=== PATIENT | female | born 1975 | race Caucasian/White ===

== ENCOUNTER 2016-08-05 04:11 | Emergency (ER) | payer MEDICAID, OTHER ==
[~2016-08-05] VITALS: Ht 160 cm; Wt 61.4 kg
--- NOTE | 2016-08-05 04:10 | ED.REPORT ---
HPI-Dyspnea / Wheezing Date of Service Aug 05, 2016 ED Provider: Demetrio Hooks MD Patient is a 41 year old female with a hx of COPD, asthma, anxiety and a current every day smoker who presents to the ED via EMS due to increasing dyspnea for the past 2 hours. She awoke in the middle of the night due to SOB and reports increased phlegm. Upon arrival at the ED, she reports that the breathing treatment is helping her respiration. Pt denies chest pain. She was last seen at the ED three months ago for similar symptoms. Nursing Notes Stated Complaint: SHORT OF BREATH Nursing Notes Reviewed: Yes Allergies: Coded Allergies: No Known Allergies (Verified Allergy, Unknown, 05/05/16) Scheduled Fluticasone/Salmeterol (Advair 500-50 Diskus) 1 Each Disk.w.dev 1 PUFF IH BID Methylprednisolone (MethylprednisoLONE Dose Kyle) 4 Mg Tab.ds.pk 4 MG PO UD Follow direction on package. Nicotine 21 mg/24 hr Patch (Nicotine 21 mg/24 hr Patch) 1 Each Patch.td24 1 PATCH TOPICAL DAILY@17 Sulfamethoxazole/Trimeth 800-160 mg (Bactrim DS 800-160 mg) 1 Each Tablet 1 TABLET PO bid x 7 days Tiotropium [place] (Spiriva) 18 Mcg Cap.w.dev 18 MCG IH DAILY Scheduled PRN Albuterol HFA (Proair HFA) 8.5 Gm Hfa.aer.ad 2 PUFFS INHALATION Q4H PRN PRN For Shortness of Breath Ipratropium/Albuterol Sulfate (Iprat-Albut 0.5-3(2.5) mg/3 mL Inhalant Soln) 3 Ml Ampul.neb 3 ML NEB Q4H PRN PRN For Shortness of Breath General Time Seen by MD: 04:10 Chief Complaint Shortness of breath Hx Obtained From: Patient, EMS Arrived By: Ambulance Sudden in Onset?: Yes Onset Occurred: Just prior to arrival Symptom Duration: Since onset Severity: Current: No pain currently Recent Healthcare: No recent doctor visit, No recent hospitalization Similar Sx Previous: No Past Medical History Past Medical History Notes: Last admit was for small bowel obstruction, COPD August 2015 Past Medical History Anxiety History of small bowel obstruction COPD Asthma Reports: Depression Past Surgical History SBO repair Hemicolectomy with anastomosis Smoking History Current Every Day Smoker Social History Alcohol Use: Denies alcohol use Drug Use: THC Other Social History: Ambulatory Status Independent Review of Systems Respiratory: Reports: Dyspnea on exertion, Shortness of breath Cardiovascular: Denies: Chest pain Complete sys rev & neg: except as marked. Physical Exam Initial Vital Signs Vital Signs (First) Date Time Temp Pulse Resp B/P Pulse Ox O2 Delivery O2 Flow Rate FiO2 08/05/16 04:21 36.1 92 24 135/70 100 Simple Mask 6 Initial VS: Reviewed Head / Eyes: Atraumatic, Normocephalic, PERRL ENT: Mucous membranes moist, Conjunctiva normal, No scleral icterus Abdomen / GI: Soft, Non-tender, No guarding, No rebound, No distention Back: No CVA tenderness General/Constitutional: Awake, Alert, Well hydrated, Cooperative Distress / Hydration: Positive: Distress mild Neck: Atraumatic, Supple, No meningismus, Full range of motion, No adenopathy, No swelling, Non-tender, No midline vertebral tend Diminished Breath Sounds: Positive: Decreased bilateral Wheezing / Retractions: Positive: Wheeze insp/exp diffuse tripoding using accessory muscles for respiration Cardiovascular: Heart rate NL, Regular rhythm, Heart sounds NL, No gallop, No murmurs, No rubs Interpretation & Diagnostics Lab Results Interpretation Result Diagram: 08/05/16 0420 08/05/16 0445 Test 08/05/16 04:20 08/05/16 04:45 White Blood Count 10.1th/mm3 (3.8-10.1) Red Blood Count 4.71mil/mm3 (3.90-5.20) Hemoglobin 15.7g/dL (12.0-15.6) Hematocrit 46.8% (35.0-46.0) Mean Corpuscular Volume 99.4fL (81-100) Mean Corpuscular Hemoglobin 33.3pg (27.0-35.0) Mean Corpuscular Hemoglobin Concent 33.5% (32.0-37.0) Red Cell Distribution Width 12.0% (12.3-15.4) Platelet Count 366bil/L (150-400) Neutrophils (%) (Auto) 49.8% (40-74) Lymphocytes (%) (Auto) 36.0% (14-46) Monocytes (%) (Auto) 9.3% (4-12) Eosinophils (%) (Auto) 4.2% (0-5) Basophils (%) (Auto) 0.5% (0-3) Sodium Level 138mEq/L (134-144) Potassium Level 4.9mEq/L (3.5-5.2) Chloride Level 101mEq/L (97-108) Carbon Dioxide Level 24mmol/L (18-29) Blood Urea Nitrogen 19mg/dL (6-24) Creatinine 0.89mg/dL (0.57-1.00) Estimat Glomerular Filtration Rate 99mL/min (>59) Glucose Level 112mg/dL (60-99) Calcium Level 8.9mg/dL (8.5-10.1) Total Bilirubin 0.2mg/dL (0.0-1.2) Aspartate Amino Transf (AST/SGOT) 10U/L (0-50) Alanine Aminotransferase (ALT/SGPT) 7U/L (0-32) Alkaline Phosphatase 36U/L (25-150) Troponin T 0.010ug/L (0.0-0.011) Pro-B-Type Natriuretic Peptide 32.18pg/mL (0-130) Total Protein 6.6g/dL (6.4-8.4) Albumin 4.3g/dL (3.4-5.0) Hold [place] Top Tube Received (Received) ECG Interpretation Time: 04:31 Interpreted by: ED physician Normal ECG Interpretation: Normal sinus rhythm (79) X-Ray Chest Interpretation Chest Xray Interpretation: IMPRESSION: normal no acute findings View: Portable Interpretation / Wet Read by: Wet read ED physician Re-Eval/Medical Decision Med Decision/Clinical Course 1-year-old female with an acute exacerbation of COPD. She responded nicely to nebulizer treatments with DuoNeb followed by continuous albuterol. She was given Solu-Medrol and restarted on prednisone. A prescription was written for prednisone taper. Re-Evaluation/Progress : Time of Eval: 04:43 Patient Status: Condition improved Re-Evaluation/Progress Note: Pt rechecked. Breathing has imrpoved after treatments. Counseled Regarding: Diagnosis, Lab results, Need for follow-up, When/why to return to ED Discharge & Departure Impression: Primary Impression: COPD with acute exacerbation Disposition: Home Discharge Condition All VS Reviewed: Yes Condition: Stable Patient Instructions: Chronic Obstructive Pulmonary Disease (ED) Additional Instructions: Prednisone 20 mg, one tab by mouth 3 times a day for 2 days, one tab by mouth twice a day for 2 days, one tab daily for 2 days, then one half tab daily for 4 days, #14 prescription written. Continue your other medications. Follow-up with your primary doctor as needed for persistent symptoms. Return to the emergency room if you worsens significantly again. Referrals: [facility] (PCP) Scribe Attestation Portions of this note were transcribed by Edgar Moreno. I, Dr. Hooks personally performed the history, physical exam and medical decision-making; I reviewed and confirmed the accuracy of the information in the transcribed note. Signed by: Carson Handley, 08/05/16 0500 copies to: [facility] Demetrio Hooks MD Aug 05, 2016 04:10 EDGAR MORENO Aug 05, 2016 04:21
[~2016-08-05 04:11] MED LIST: ALBU8.5H2 INHALATION; FLUT1DIS5 IH; IPRA3AMP NEB; METH4TAB11 PO; NICO1PAT6 TOPICAL; SULF1TAB35 PO; TIOT18CA3 IH
[2016-08-05] MEDS ORDERED: Albuterol 0.5% (5mg/mL) 20 mL Inhalation Solution ONE (04:14)
[2016-08-05] MEDS ORDERED: Albuterol 2.5 mg/3 mL Inhalation Solution NEB ONE ×2 (04:15→06:15)
[2016-08-05] MEDS ORDERED: MethylprednisoLONE Sodium Succinate 62.5 mg/mL 2 mL Inj IVPUSH ONE (04:15)
[2016-08-05 04:21] VITALS: BP 135/70; PULSE 92; RESP 24; O2SAT 100
[2016-08-05 04:23] LABS: BASOPHILS % (AUTO) 0.5 % (0-3); EOSINOPHILS % (AUTO) 4.2 % (0-5); MONOCYTES % (AUTO) 9.3 % (4-12); Mean Corpuscular Hemoglobin 33.3 pg (27.0-35.0); Mean Corpuscular Volume 99.4 fL (81-100); NEUTROPHILS % (AUTO) 49.8 % (40-74); Platelet Count 366 bil/L (150-400)
[2016-08-05 04:25] VITALS: PULSE 97; RESP 20; O2SAT 100
[2016-08-05 04:44] VITALS: BP 118/67; PULSE 100; RESP 24; O2SAT 98
[2016-08-05] MEDS ORDERED: fentaNYL-PF 50 mCg/mL 2 mL Inj IVPUSH ONE (04:50)
[2016-08-05 05:16] LABS: TROPONIN T 0.01 ug/L (0.0-0.011)
[2016-08-05 06:06] VITALS: BP 132/72; PULSE 110; RESP 20; O2SAT 92
[2016-08-05 06:24] VITALS: PULSE 95; RESP 20; O2SAT 100
[2016-08-05 06:40] VITALS: BP 132/72; PULSE 92; RESP 18; O2SAT 92
--- NOTE | 2016-08-05 08:34 | DRSVH ---
PROCEDURE: X-RAY CHEST ONE VIEW, PORTABLE ([id number]) INDICATIONS: 41 year-old female with dyspnea. TECHNIQUE: One view of the chest was acquired. COMPARISON: [facility], CR, XR CHEST 2VW, 05/08/2016, 7:41. [facility], CR, XR CHEST 1VW (PORTABLE), 05/05/2016, 0:26. [facility], CR, XR CHEST 2VW, 11/29/2015, 19: 20. FINDINGS: Surgical changes and devices: None. Lungs and pleura: No pleural effusions or pneumothorax. Lungs are clear. Mediastinum: Mediastinal contours appear normal. Heart size is normal. Bones and chest wall: No suspicious bony lesions. Overlying soft tissues appear unremarkable. IMPRESSION: No acute cardiopulmonary disease. Dictated by: Zain Garcia M.D. on 08/05/2016 at 8:31 Approved by: Zain Garcia M.D. on 08/05/2016 at 8:32
[2016-08-06] MEDS ORDERED: HYDR-3797 PO (06:09)
== END 2016-08-05 06:42 | disposition home or self-care (01) ==
LOC: SED 04:11
DX: J44.1 Chronic obstructive pulmonary disease with (acute) exacerbation (principal); F17.200 Nicotine dependence, unspecified, uncomplicated
CPT/HCPCS: 36415; 71010; 80053; 83880; 84484; 85025; 93005; 94640; 94644; 96374; 99285; J2930; J7613

== ENCOUNTER 2016-08-06 00:17 | Emergency (ER) | payer OTHER ==
[~2016-08-06] VITALS: Ht 160 cm; Wt 63.6 kg
--- NOTE | 2016-08-06 00:27 | ED.REPORT ---
HPI-Dyspnea / Wheezing Date of Service Aug 06, 2016 ED Provider: Demetrio Hooks MD Patient is a 41 year old female with a hx of COPD, asthma, anxiety and a current every day smoker who presents to the ED via EMS due to increasing dyspnea. She used her nebulizer before going to bed and was falling asleep when , "all of a sudden I couldn't breathe." She admits to feeling anxiety about her breathing. She was seen at the ED last night for similar symptoms. She is currently on an albuterol inhaler. Nursing Notes Stated Complaint: RESPIRATORY DISTRESS Nursing Notes Reviewed: Yes Allergies: Coded Allergies: No Known Allergies (Verified Allergy, Unknown, 05/05/16) Scheduled Fluticasone/Salmeterol (Advair 500-50 Diskus) 1 Each Disk.w.dev 1 PUFF IH BID Methylprednisolone (MethylprednisoLONE Dose Kyle) 4 Mg Tab.ds.pk 4 MG PO UD Follow direction on package. Nicotine 21 mg/24 hr Patch (Nicotine 21 mg/24 hr Patch) 1 Each Patch.td24 1 PATCH TOPICAL DAILY@17 Sulfamethoxazole/Trimeth 800-160 mg (Bactrim DS 800-160 mg) 1 Each Tablet 1 TABLET PO bid x 7 days Tiotropium [place] (Spiriva) 18 Mcg Cap.w.dev 18 MCG IH DAILY Scheduled PRN Albuterol HFA (Proair HFA) 8.5 Gm Hfa.aer.ad 2 PUFFS INHALATION Q4H PRN PRN For Shortness of Breath Ipratropium/Albuterol Sulfate (Iprat-Albut 0.5-3(2.5) mg/3 mL Inhalant Soln) 3 Ml Ampul.neb 3 ML NEB Q4H PRN PRN For Shortness of Breath General Time Seen by MD: 00:26 Chief Complaint Shortness of breath Hx Obtained From: Patient Arrived By: Ambulance Sudden in Onset?: Yes Onset Occurred: Just prior to arrival Symptom Duration: Since onset Severity: Current: No pain currently Recent Healthcare: Recent doctor visit Similar Sx Previous: Yes Past Medical History Past Medical History Notes: Last admit was for small bowel obstruction, COPD August 2015 Past Medical History Anxiety History of small bowel obstruction COPD Asthma Reports: Depression Past Surgical History SBO repair Hemicolectomy with anastomosis Smoking History Current Every Day Smoker Social History Alcohol Use: Denies alcohol use Drug Use: THC Other Social History: Ambulatory Status Independent Review of Systems Respiratory: Reports: Dyspnea on exertion, Shortness of breath Complete sys rev & neg: except as marked. Physical Exam Initial Vital Signs Vital Signs (First) Date Time Temp Pulse Resp B/P Pulse Ox O2 Delivery O2 Flow Rate FiO2 08/06/16 00:30 36.7 113 19 110/64 96 Nasal Cannula 2 Initial VS: Reviewed, Vital signs abnormal Head / Eyes: Atraumatic, Normocephalic, PERRL ENT: Mucous membranes moist, Conjunctiva normal, No scleral icterus Abdomen / GI: Soft, Non-tender, No guarding, No rebound, No distention Extremities: Vascular intact, Neuro intact, No swelling, No tenderness Skin: Warm, Dry, No cyanosis Neurologic: Alert, Oriented, Nonfocal Psychiatric: Mood/affect normal, Behavior normal, Normal thought content General/Constitutional: Awake, Alert, Well appearing, Well hydrated, Cooperative Neck: Atraumatic, Supple, No meningismus, Full range of motion, No swelling, Non-tender, No midline vertebral tend Wheezing / Retractions: Positive: Wheeze insp/exp diffuse Cardiovascular: Heart rate NL, Regular rhythm, Heart sounds NL, No gallop, No murmurs, No rubs Interpretation & Diagnostics Lab Results Interpretation Test 08/06/16 00:44 Hold Purple Top Tube Received (Received) Hold Blue Top Tube Received (Received) Hold Red Top Tube Received (Received) Hold [place] Top Tube Received (Received) Re-Eval/Medical Decision Med Decision/Clinical Course 41-year-old female with severe COPD presents with acute exacerbation. She was doing well until she had a coughing fit and developed some wheezing. She describes anxiety symptoms associated with this. She was given DuoNeb and albuterol nebulizers with complete clearing. She did well throughout the night without repeat treatments. Re-Evaluation/Progress : Time of Eval: 04:08 Patient Status: Condition improved Re-Evaluation/Progress Note: Pt rechecked. Her breathing has improved but she is unsure if she feels comfortable enough to return home. Counseled Regarding: Diagnosis, Lab results, Need for follow-up Discharge & Departure Impression: Primary Impression: COPD with acute exacerbation Disposition: Home Discharge Condition All VS Reviewed: Yes Condition: Stable Patient Instructions: Chronic Obstructive Pulmonary Disease (ED) Additional Instructions: Continue your present medical regimen. Hydroxyzine 25 mg at bedtime may help if you are allergic to something in the house and with anxiousness. Referrals: [facility] (PCP) Scrib[place]rina Attestation Portions of this note were transcribed by Edgar Moreno. I, Dr. Hooks personally performed the history, physical exam and medical decision-making; I reviewed and confirmed the accuracy of the information in the transcribed note. Signed by: Carson Handley, 08/06/16 0601 copies to: [facility] Demetrio Hooks MD Aug 06, 2016 00:27 EDGAR MORENO Aug 06, 2016 00:32
[2016-08-06 00:30] VITALS: BP 110/64; PULSE 113; RESP 19; O2SAT 96
[2016-08-06] MEDS ORDERED: Albuterol 2.5 mg/3 mL Inhalation Solution NEB ONE (00:30)
[2016-08-06 00:55] VITALS: PULSE 112; RESP 22; O2SAT 98
[2016-08-06 03:00] VITALS: BP 112/68; PULSE 110; RESP 20; O2SAT 94
[2016-08-06 05:53] VITALS: BP 114/65; PULSE 115; RESP 18; O2SAT 92
[2016-08-06] MEDS ORDERED: HYDR-3797 PO (06:09)
[2016-08-06 06:34] VITALS: BP 114/65; PULSE 115; RESP 18; O2SAT 92
== END 2016-08-06 06:35 | disposition home or self-care (01) ==
LOC: SED 00:17 → EDBD 00:17 → SED 06:35
DX: J44.1 Chronic obstructive pulmonary disease with (acute) exacerbation (principal); F17.200 Nicotine dependence, unspecified, uncomplicated; Z79.51 Long term (current) use of inhaled steroids
CPT/HCPCS: 94644; 99284; J7613

== ENCOUNTER 2016-09-10 05:52 | Emergency (ER) | payer OTHER ==
[~2016-09-10] VITALS: Ht 160 cm; Wt 68.2 kg
[~2016-09-10 05:52] MED LIST changes: +HYDR-3797 PO
[2016-09-10 06:01] VITALS: BP 133/58; PULSE 105; RESP 24; O2SAT 98
--- NOTE | 2016-09-10 06:14 | ED.REPORT ---
HPI-Dyspnea / Wheezing Date of Service Sep 10, 2016 ED Provider: Roberta Tamayo MD 41 year old female with a history of COPD, asthma, and anxiety presents to the ER via EMS due to shortness of breath onset this morning upon awakening. She has recently started smoking again and lives in a house full of other smokers. Associated symptom of chest pain described as "lung pain", though she denies chest pain that feels cardiac in nature. Typically she is on 2L home O2 at night and PRN, and is prescribed Advair, Pro Air, and home nebulizer. For the past month she has been using the nebulizer more frequently, and recently ran out of her Advair. DuoNeb administered en route with marked improvement. Most recent ER visit for similar was about a month ago. Nursing Notes Stated Complaint: SHORT OF BREATH Chief Complaint: Respiratory Distress Nursing Notes Reviewed: Yes Allergies: Coded Allergies: No Known Allergies (Verified Allergy, Unknown, 05/05/16) Scheduled Albuterol HFA (Proair HFA) 8.5 Gm Hfa.aer.ad 2 PUFFS INHALATION Q4H with spacer and teaching for spacer use Fluticasone/Salmeterol (Advair 500-50 Diskus) 1 Each Disk.w.dev 1 PUFF IH BID Fluticasone/Salmeterol (Advair 500-50 Diskus) 1 Each Disk.w.dev 1 PUFF IH BID Methylprednisolone (MethylprednisoLONE Dose Kyle) 4 Mg Tab.ds.pk 4 MG PO UD Follow direction on package. Methylprednisolone (MethylprednisoLONE Dose Kyle) 4 Mg Tab.ds.pk 4 MG PO UD Follow direction on package. Nicotine 21 mg/24 hr Patch (Nicotine 21 mg/24 hr Patch) 1 Each Patch.td24 1 PATCH TOPICAL DAILY@17 Sulfamethoxazole/Trimeth 800-160 mg (Bactrim DS 800-160 mg) 1 Each Tablet 1 TABLET PO bid x 7 days Tiotropium [place] (Spiriva) 18 Mcg Cap.w.dev 18 MCG IH DAILY Scheduled PRN Albuterol HFA (Proair HFA) 8.5 Gm Hfa.aer.ad 2 PUFFS INHALATION Q4H PRN PRN For Shortness of Breath Hydroxyzine Pamoate (HydrOXYzine Pamoate) 25 Mg Capsule 25 MG PO HS PRN PRN For Insomnia Ipratropium/Albuterol Sulfate (Iprat-Albut 0.5-3(2.5) mg/3 mL Inhalant Soln) 3 Ml Ampul.neb 3 ML NEB Q4H PRN PRN For Shortness of Breath General Time Seen by MD: 06:13 Chief Complaint Shortness of breath Hx Obtained From: Patient Arrived By: Ambulance Sudden in Onset?: No Onset Occurred: 1 - 4 hours ago Symptom Duration: Since onset Associated with: Reports: Chest pain Pertinent Negative: Pt denies other symptoms Context Related History: Reports: COPD Asthma History: Asthma diagnosed, Last admit 1 - 2 months, Last ED visit < 1 month, Home albuterol neb, Home Advair Recent Healthcare: No recent doctor visit, No recent hospitalization Similar Sx Previous: Yes Risk Factors CAD Risk Stratification SmokingNo Diabetes mellitus, No Known CAD Risk factors reviewed Past Medical History Past Medical History Notes: Last admit was for small bowel obstruction, COPD August 2015 Past Medical History Anxiety History of small bowel obstruction COPD Asthma Reports: Depression Past Surgical History SBO repair Hemicolectomy with anastomosis Smoking History Current Every Day Smoker Social History Alcohol Use: Denies alcohol use Drug Use: THC Other Social History: Ambulatory Status Independent Review of Systems Constitutional: Denies: Chills, Fever Respiratory: Reports: Shortness of breath, Denies: Hemoptysis, Non-productive cough Cardiovascular: Reports: Chest pain Musculoskeletal: Denies: Extremity pain, Neck pain Skin: Denies Diaphoresis Complete sys rev & neg: except as marked. Physical Exam Initial Vital Signs Vital Signs (First) Date Time Temp Pulse Resp B/P Pulse Ox O2 Delivery O2 Flow Rate FiO2 09/10/16 06:01 36.0 105 24 133/58 98 Simple Mask 8 Initial VS: Reviewed Abdomen / GI: Soft, Non-tender, No guarding, No rebound, No distention Extremities: Vascular intact, Neuro intact, No swelling, No tenderness Skin: Warm, Dry, No cyanosis Neurologic: Alert, Oriented, Nonfocal General/Constitutional: Awake, Alert, Well developed, Well nourished Neck: Atraumatic, Supple, No meningismus, Full range of motion, No swelling, Non-tender, No masses Respiratory / Chest: Breath sounds NL, Breath sounds = bilat, No respiratory distress, No rales, No rhonchi, No wheezing, No retractions Cardiovascular: Regular rhythm, Heart sounds NL, No murmurs, Peripheral circulation NL Heart Rate / Rhythm: Positive: Bradycardia Lower Ext Edema: Positive: Bilateral 1+ Interpretation & Diagnostics Lab Results Interpretation Result Diagram: 09/10/16 0557 09/10/16 0557 Test 09/10/16 05:57 White Blood Count 9.3th/mm3 (3.8-10.1) Red Blood Count 4.87mil/mm3 (3.90-5.20) Hemoglobin 16.1g/dL (12.0-15.6) Hematocrit 47.6% (35.0-46.0) Mean Corpuscular Volume 97.7fL (81-100) Mean Corpuscular Hemoglobin 33.1pg (27.0-35.0) Mean Corpuscular Hemoglobin Concent 33.8% (32.0-37.0) Red Cell Distribution Width 12.7% (12.3-15.4) Platelet Count 370bil/L (150-400) Neutrophils (%) (Auto) 41.6% (40-74) Lymphocytes (%) (Auto) 42.2% (14-46) Monocytes (%) (Auto) 11.6% (4-12) Eosinophils (%) (Auto) 3.9% (0-5) Basophils (%) (Auto) 0.6% (0-3) Hold Purple Top Tube Received (Received) Hold Blue Top Tube Received (Received) Sodium Level 141mEq/L (134-144) Potassium Level 4.8mEq/L (3.5-5.2) Chloride Level 102mEq/L (97-108) Carbon Dioxide Level 21mmol/L (18-29) Blood Urea Nitrogen 11mg/dL (6-24) Creatinine 1.06mg/dL (0.57-1.00) Estimat Glomerular Filtration Rate 81mL/min (>59) Glucose Level 122mg/dL (60-99) Calcium Level 9.1mg/dL (8.5-10.1) Total Bilirubin 0.5mg/dL (0.0-1.2) Aspartate Amino Transf (AST/SGOT) 20U/L (0-50) Alanine Aminotransferase (ALT/SGPT) 9U/L (0-32) Alkaline Phosphatase 50U/L (25-150) Troponin T < 0.010ug/L (0.0-0.011) Pro-B-Type Natriuretic Peptide 30.95pg/mL (0-130) Total Protein 7.7g/dL (6.4-8.4) Albumin 4.9g/dL (3.4-5.0) Procalcitonin 0.02ng/mL (0.00-0.08) Hold Red Top Tube Received (Received) Hold [place] Top Tube Received (Received) Pulse Oximetry Interpretation Pulse Oximetry Interpretation: 87% on room air. She is able to get up to 90% with deep breaths at rest, but drops back down with talking or activity. Pulse Oximetry: Pulse Ox low ECG Interpretation ECG Interpretation: Sinus tachycardia, rate 102 Old anterior infarct No acute ischemia Time: 08:07 Interpreted by: ED physician X-Ray Chest Interpretation Chest Xray Interpretation: Consistent with hyperinflation. No acute infiltrates. View: Portable, 1 view Interpretation / Wet Read by: Wet read ED physician Re-Eval/Medical Decision Source of Hx: Old records Re-Evaluation/Progress #1: Time of Eval: 07:09 Re-Evaluation/Progress Note: Discussed physical examination findings and plan of care. Re-Evaluation/Progress #2: Time of Eval: 08:59 Re-Evaluation/Progress Note: Discussed lab and radiology results and plan to discharge. Patient is amenable to the plan. Return precautions given. All other questions addressed. Counseled Regarding: Diagnosis, Lab results, Need for follow-up, When/why to return to ED Discharge & Departure Impression: Primary Impression: COPD with acute exacerbation Ruled Out: Pneumonia Disposition: Home Discharge Condition All VS Reviewed: Yes Condition: Improved Patient Instructions: Chronic Obstructive Pulmonary Disease (DC) Additional Instructions: Finish your steroid taper. Make sure you use your Advair, Pro Air, and nebulizer at home. You really need to stop smoking. Your medication [facility]. Return to the ER if you develop uncontrollable shortness of breath, or any other concerning symptoms. Referrals: [facility] (PCP) Carson Attestation Portions of this note were transcribed by Sky Oakes. I, Dr. Tamayo, personally performed the history, physical exam and medical decision-making; I reviewed and confirmed the accuracy of the information in the transcribed note. Signed by: Carson Michel, 09/10/2016 and 08:59 copies to: [facility] Roberta Tamayo MD Sep 10, 2016 06:14 [place] Sep 10, 2016 06:28
[2016-09-10 07:03] VITALS: BP 112/56; PULSE 108; RESP 18; O2SAT 89
[2016-09-10] MEDS ORDERED: 0.9% Sodium Chloride 1,000 ML IV ONE (07:13)
[2016-09-10] MEDS ORDERED: Albuterol-Ipratropium 3 mL Inhalation Solution NEB ONE (07:15)
[2016-09-10] MEDS ORDERED: MethylprednisoLONE Sodium Succinate 62.5 mg/mL 2 mL Inj IVPUSH ONE (07:15)
[2016-09-10 07:29] LABS: BASOPHILS % (AUTO) 0.6 % (0-3); EOSINOPHILS % (AUTO) 3.9 % (0-5); MONOCYTES % (AUTO) 11.6 % (4-12); Mean Corpuscular Hemoglobin 33.1 pg (27.0-35.0); Mean Corpuscular Volume 97.7 fL (81-100); NEUTROPHILS % (AUTO) 41.6 % (40-74); Platelet Count 370 bil/L (150-400)
[2016-09-10 07:32] VITALS: PULSE 105; RESP 20; O2SAT 92
[2016-09-10 07:53] LABS: TROPONIN T < 0.010 ug/L (0.0-0.011)
[2016-09-10] MEDS ORDERED: ALBU8.5H2 INHALATION (08:55)
[2016-09-10] MEDS ORDERED: METH4TAB11 PO (08:55)
[2016-09-10] MEDS ORDERED: FLUT1DIS5 IH (08:55)
[2016-09-10 09:09] VITALS: BP 118/55; PULSE 89; RESP 20; O2SAT 90
--- NOTE | 2016-09-10 09:40 | DRSVH ---
PROCEDURE: X-RAY CHEST, TWO VIEWS ([id number]) INDICATIONS: dyspnea TECHNIQUE: 2 views of the chest were acquired. COMPARISON: [facility], CR, XR CHEST 1VW (PORTABLE), 08/05/2016, 4:23. [facility], CR, XR CHEST 2VW, 05/08/2016, 7:41. FINDINGS: Surgical changes and devices: None. Lungs and pleura: No pleural effusions or pneumothorax. Lungs are clear. Mediastinum: Mediastinal contours are normal. Heart size is normal. Bones and chest wall: No suspicious bony abnormalities. Soft tissues appear unremarkable. IMPRESSION: No acute cardiopulmonary disease. Dictated by: Dario [place] Interpreted: Shawna Castellanos MD on 09/10/2016 at 9:39 Transcribed by: MAGNUS on 09/10/2016 at 9:40 Approved by: Shawna Castellanos M.D. on 09/10/2016 at 16:45
== END 2016-09-10 09:10 | disposition home or self-care (01) ==
LOC: SED 05:52
DX: J44.1 Chronic obstructive pulmonary disease with (acute) exacerbation (principal); F17.200 Nicotine dependence, unspecified, uncomplicated; J45.909 Unspecified asthma, uncomplicated
CPT/HCPCS: 36415; 71020; 80053; 82308; 83880; 84484; 85025; 93005; 94664; 96374; 99285; J2930; J7620

== ENCOUNTER 2016-11-04 05:11 | Emergency (ER) | payer OTHER ==
[~2016-11-04] VITALS: Ht 160 cm; Wt 68.0 kg
[2016-11-04 05:09] VITALS: BP 122/58; PULSE 84; RESP 20; O2SAT 94
[2016-11-04 05:15] LABS: BASOPHILS % (AUTO) 0.6 % (0-3); EOSINOPHILS % (AUTO) 2.5 % (0-5); MONOCYTES % (AUTO) 10.3 % (4-12); Mean Corpuscular Volume 100.2 fL (81-100); NEUTROPHILS % (AUTO) 49.2 % (40-74); Platelet Count 335 bil/L (150-400)
[2016-11-04] MEDS ORDERED: MethylprednisoLONE Sodium Succinate 62.5 mg/mL 2 mL Inj IVPUSH ONE (05:35)
[2016-11-04] MEDS ORDERED: Albuterol 2.5 mg/3 mL Inhalation Solution NEB PRN (05:35)
[2016-11-04 05:38] LABS: TROPONIN T 0.01 ug/L (0.0-0.011)
--- NOTE | 2016-11-04 05:45 | ED.REPORT ---
HPI-Dyspnea / Wheezing Date of Service November 04, 2016 ED Provider: Demetrio Hooks MD This is a 41 year old female with history of COPD, on 2 liters of oxygen at night who presents to [facility] Emergency Department complaining of worsening cough and shortness of breath over the last few days. Patient continues to smoke at least 5 cigarettes a day. She has 50 pack year history of smoking. She denies chills, fever, sore throat, nasal congestion, chest pain, irregular heart palpitations, dysuria, weakness. She denies recent travels or sick contacts. Nursing Notes Stated Complaint: SOB Chief Complaint: Respiratory Complaints Allergies: Coded Allergies: No Known Allergies (Verified Allergy, Unknown, 05/05/16) Scheduled Albuterol HFA (Proair HFA) 8.5 Gm Hfa.aer.ad 2 PUFFS INHALATION Q4H with spacer and teaching for spacer use Azithromycin (Zithromax (Z-Kyle)) 250 Mg Tablet 250 MG PO DIRECTED Take two tablets by mouth on day 1, then take one tablet daily on days 2 through 5. Fluticasone/Salmeterol (Advair 500-50 Diskus) 1 Each Disk.w.dev 1 PUFF IH BID Fluticasone/Salmeterol (Advair 500-50 Diskus) 1 Each Disk.w.dev 1 PUFF IH BID Methylprednisolone (MethylprednisoLONE Dose Kyle) 4 Mg Tab.ds.pk 4 MG PO UD Follow direction on package. Methylprednisolone (MethylprednisoLONE Dose Kyle) 4 Mg Tab.ds.pk 4 MG PO UD Follow direction on package. Nicotine 21 mg/24 hr Patch (Nicotine 21 mg/24 hr Patch) 1 Each Patch.td24 1 PATCH TOPICAL DAILY@17 Prednisone (PredniSONE) 20 Mg Tablet 40 MG PO DAILY Sulfamethoxazole/Trimeth 800-160 mg (Bactrim DS 800-160 mg) 1 Each Tablet 1 TABLET PO bid x 7 days Tiotropium [place] (Spiriva) 18 Mcg Cap.w.dev 18 MCG IH DAILY Scheduled PRN Albuterol HFA (Proair HFA) 8.5 Gm Hfa.aer.ad 2 PUFFS INHALATION Q4H PRN PRN For Shortness of Breath Hydroxyzine Pamoate (HydrOXYzine Pamoate) 25 Mg Capsule 25 MG PO HS PRN PRN For Insomnia Ipratropium/Albuterol Sulfate (Iprat-Albut 0.5-3(2.5) mg/3 mL Inhalant Soln) 3 Ml Ampul.neb 3 ML NEB Q4H PRN PRN For Shortness of Breath Ipratropium/Albuterol Sulfate (Iprat-Albut 0.5-3(2.5) mg/3 mL Inhalant Soln) 3 Ml Ampul.neb 3 ML IH Q6 PRN PRN For Shortness of Breath General Time Seen by MD: 06:11 Chief Complaint Shortness of breath, Wheezing Hx Obtained From: Patient Sudden in Onset?: No Symptom Duration: 3 days Severity: Current: No pain currently Risk Factors CAD Risk Stratification Smoking Past Medical History Past Medical History Notes: Last admit was for small bowel obstruction, COPD August 2015 Past Medical History Anxiety History of small bowel obstruction COPD Asthma Reports: Depression Past Surgical History SBO repair Hemicolectomy with anastomosis Smoking History Current Every Day Smoker Social History Alcohol Use: Denies alcohol use Drug Use: THC Other Social History: Ambulatory Status Independent Review of Systems A comprehensive review of systems has been conducted with the patient and was found to be negative except what is mentioned in the history of present illness. Complete sys rev & neg: except as marked. Physical Exam Initial Vital Signs Vital Signs (First) Date Time Temp Pulse Resp B/P Pulse Ox O2 Delivery O2 Flow Rate FiO2 11/04/16 05:09 36.5 84 20 122/58 94 Nasal Cannula 2 Initial VS: Reviewed Head / Eyes: Atraumatic, Normocephalic, PERRL ENT: Mucous membranes moist, Conjunctiva normal, No scleral icterus Abdomen / GI: Soft, Non-tender, No guarding, No rebound, No distention Extremities: Vascular intact, Neuro intact, No swelling, No tenderness Skin: Warm, Dry, No cyanosis Neurologic: Alert, Oriented Psychiatric: Mood/affect normal, Behavior normal General/Constitutional: Awake, Alert, No acute distress Neck: Supple, Full range of motion, No adenopathy, No JVD Wheezing / Retractions: Positive: Wheezing moderate (throughout anterior and posterior lung call bilaterally ) Cardiovascular: Heart rate NL, Regular rhythm Interpretation & Diagnostics Lab Results Interpretation Result Diagram: 11/04/16 0510 11/04/16 0510 Test 11/04/16 05:10 11/04/16 06:23 White Blood Count 8.4th/mm3 (3.8-10.1) Red Blood Count 4.50mil/mm3 (3.90-5.20) Hemoglobin 15.3g/dL (12.0-15.6) Hematocrit 45.1% (35.0-46.0) Mean Corpuscular Volume 100.2fL (81-100) Mean Corpuscular Hemoglobin 34.0pg (27.0-35.0) Mean Corpuscular Hemoglobin Concent 33.9% (32.0-37.0) Red Cell Distribution Width 12.7% (12.3-15.4) Platelet Count 335bil/L (150-400) Neutrophils (%) (Auto) 49.2% (40-74) Lymphocytes (%) (Auto) 37.3% (14-46) Monocytes (%) (Auto) 10.3% (4-12) Eosinophils (%) (Auto) 2.5% (0-5) Basophils (%) (Auto) 0.6% (0-3) Sodium Level 144mEq/L (134-144) Potassium Level 4.9mEq/L (3.5-5.2) Chloride Level 106mEq/L (97-108) Carbon Dioxide Level 23mmol/L (18-29) Blood Urea Nitrogen 18mg/dL (6-24) Creatinine 0.85mg/dL (0.57-1.00) Estimat Glomerular Filtration Rate 105mL/min (>59) Glucose Level 99mg/dL (60-99) Calcium Level 9.2mg/dL (8.5-10.1) Magnesium Level 2.2mg/dL (1.6-2.6) Total Bilirubin 0.3mg/dL (0.0-1.2) Aspartate Amino Transf (AST/SGOT) 12U/L (0-50) Alanine Aminotransferase (ALT/SGPT) 7U/L (0-32) Alkaline Phosphatase 47U/L (25-150) Troponin T 0.010ug/L (0.0-0.011) Pro-B-Type Natriuretic Peptide 60.36pg/mL (0-130) Total Protein 7.6g/dL (6.4-8.4) Albumin 4.5g/dL (3.4-5.0) Urine Color Yellow (YELLOW) Urine Appearance Slightly cloudy Urine pH 6.0 (5.0-8.0) Urine Specific [place] 1.023 (1.003-1.035) Urine Protein Negativemg/dL (NEG,TRACE) Urine Glucose (UA) Negativemg/dL (NEGATIVE) Urine Ketones Negativemg/dL (NEGATIVE) Urine Occult Blood Large (NEGATIVE) Urine Nitrite Negative (NEGATIVE) Urine Bilirubin Negative (NEGATIVE) Urine Urobilinogen Normalmg/dL (NORMAL) Urine Leukocyte Esterase Negative (NEGATIVE) Urine RBC >50/hpf (0-2) Urine WBC 6-10/hpf (0-5) Urine Epithelial Cells Occasional/hpf (NONE-MOD) Urine Crystals Amorphous urates (NONE Urine Bacteria Moderate/hpf (NONE-FEW) Urine Hyaline Casts None/lpf (NONE) Urine Granular Casts None seen (NONE SEEN) Urine Waxy Casts None seen (NONE SEEN) Urine Red Blood Cell Casts None seen (NONE SEEN) Urine White Blood Cell Casts None seen (NONE SEEN) Urine Mucus Present (None Seen) Urine Trichomonas None seen (NONE SEEN) Urine Yeast None (NONE SEEN) Urine Culture Reflexed Indicated ECG Interpretation Time: 05:10 Interpreted by: ED physician Normal ECG Interpretation: Normal rate, Normal sinus rhythm, No acute ischemic changes, Normal QRS, Normal axis, Normal intervals, No change from prior ECGs, Adequate tracing Abnormal Rate: Rate (102) X-Ray Chest Interpretation Chest Xray Interpretation: Result: Normal View: Portable, AP & lat Interpretation / Wet Read by: Wet read ED physician NL X-Ray Chest Findings: No infiltrate, Normal lung markings, Normal heart size, Normal mediastinum, No acute disease Re-Eval/Medical Decision Med Decision/Clinical Course Vickey Manuel, DO: I assumed care of this patient at 6 AM. Labs are unremarkable, chest x-ray does not show pneumonia. After my bedside exam and interview of the patient becomes clear that she ran out of her DuoNeb's 3 days ago which precipitated her symptoms. She will be discharged with DuoNeb, prednisone, azithromycin. Return and follow-up precautions are given. Chest x-ray pending DuoNebs and Albuterol ordered Solu-Medrol, 125 mg IV once ordered CBC, CMP, magnesium, BNP, Troponin, UA pending Source of Hx: Old records Re-Evaluation/Progress : Time of Eval: 06:15 Re-Evaluation/Progress Note: Rechecked pt. Discussed lab and imaging results and diagnosis. Informed the pt of the plan to discharge. Pt understands and agrees with plan. F/U instructions and RTER warning given. All questions addressed. Differential Diagnosis: Positive: COPD exacerbation Comorbidities: COPD ( ) Counseled Regarding: Diagnosis, Lab results, Need for follow-up, When/why to return to ED Discharge & Departure Disposition: Home Discharge Condition All VS Reviewed: Yes Referrals: [facility] Residency Clinic (PCP) Scribe Attestation Portions of this note were transcribed by Emmanuel Hernandez ([email or web address]) and Dr. Palak Rivas. I, , personally performed the history, physical exam and medical decision-making;I reviewed and confirmed the accuracy of the information in the transcribed note. Signed by Waleska Barreto. 11/04/16 TIME copies to: [facility] Palak Rivas DO November 04, 2016 05:45 Emmanuel Hernandez November 04, 2016 06:21 Vickey Manuel DO November 04, 2016 06:52
[2016-11-04 05:54] LABS: Magnesium 2.2 mg/dL (1.6-2.6)
[2016-11-04] MEDS ORDERED: PRE20 PO (06:31)
[2016-11-04] MEDS ORDERED: AZIT250T4 PO (06:31)
[2016-11-04] MEDS ORDERED: IPRA3AMP IH (06:31)
[2016-11-04 06:32] LABS: APPEARANCE,URINE SLIGHTLY CLOUDY (CLEAR,HAZY); COLOR,URINE YELLOW (YELLOW); OCCULT BLOOD,URINE LARGE (NEGATIVE); UROBILINOGEN,URINE NORMAL (NORMAL)
[2016-11-04 06:50] VITALS: BP 114/67; PULSE 90; RESP 18; O2SAT 94
--- NOTE | 2016-11-04 07:36 | DRSVH ---
PROCEDURE: X-RAY CHEST, TWO VIEWS ([id number]) INDICATIONS: SOB TECHNIQUE: 2 views of the chest were acquired. COMPARISON: [facility], CR, XR CHEST 2VW, 09/10/2016, 7:46. [facility], CR, XR CHEST 1VW (PORTABLE), 08/05/2016, 4:23. FINDINGS: Surgical changes and devices: None. Lungs and pleura: No pleural effusions or pneumothorax. Lungs are clear. Mediastinum: Mediastinal contours are normal. Heart size is normal. Bones and chest wall: No suspicious bony abnormalities. Soft tissues appear unremarkable. IMPRESSION: No acute process. Dictated by: Sam Mccall M.D. on 11/04/2016 at 7:34 Approved by: Sam Mccall M.D. on 11/04/2016 at 7:35
[2016-11-04] MEDS ORDERED: Albuterol-Ipratropium 3 mL Inhalation Solution NEB SCH (08:30)
== END 2016-11-04 06:50 | disposition home or self-care (01) ==
LOC: SED 05:11
DX: J44.1 Chronic obstructive pulmonary disease with (acute) exacerbation (principal); F41.9 Anxiety disorder, unspecified; F32.9 Major depressive disorder, single episode, unspecified; J45.909 Unspecified asthma, uncomplicated; F17.200 Nicotine dependence, unspecified, uncomplicated; Z99.81 Dependence on supplemental oxygen
CPT/HCPCS: 36415; 71020; 80053; 81000; 83735; 83880; 84484; 85025; 87086; 87088; 93005; 96374; 99285; J2930; J7613; J7620

== ENCOUNTER 2016-11-27 03:07 | Emergency (ER) | payer OTHER ==
[~2016-11-27] VITALS: Ht 160 cm; Wt 72.7 kg
--- NOTE | 2016-11-27 03:01 | ED.REPORT ---
HPI-Dyspnea / Wheezing Date of Service November 27, 2016 ED Provider: Dr. Hooks The patient is a 41 year old female with a history of anxiety, asthma, and COPD who presents to the ED via EMS complaining of dyspnea onset prior to arrival while she was sleeping. She has medicine and a nebulizer at home, which she used just before she came, but these were not as effective as usual. The pt was then given 1 DuoNeb by EMS, which helped somewhat. She is not on steroids, and reports that she was last on Prednisone when she was at [facility] on 11/04/2016. The patient does smoke, but she is trying to quit. The patient was recently at [facility] for COPD exacerbation on 11/04/2016. Nursing Notes Stated Complaint: SHORT OF BREATH Nursing Notes Reviewed: Yes Allergies: Coded Allergies: No Known Allergies (Verified Allergy, Unknown, 05/05/16) Scheduled Albuterol HFA (Proair HFA) 8.5 Gm Hfa.aer.ad 2 PUFFS INHALATION Q4H with spacer and teaching for spacer use Azithromycin (Zithromax (Z-Kyle)) 250 Mg Tablet 250 MG PO DIRECTED Take two tablets by mouth on day 1, then take one tablet daily on days 2 through 5. Fluticasone/Salmeterol (Advair 500-50 Diskus) 1 Each Disk.w.dev 1 PUFF IH BID Fluticasone/Salmeterol (Advair 500-50 Diskus) 1 Each Disk.w.dev 1 PUFF IH BID Methylprednisolone (MethylprednisoLONE Dose Kyle) 4 Mg Tab.ds.pk 4 MG PO UD Follow direction on package. Methylprednisolone (MethylprednisoLONE Dose Kyle) 4 Mg Tab.ds.pk 4 MG PO UD Follow direction on package. Nicotine 21 mg/24 hr Patch (Nicotine 21 mg/24 hr Patch) 1 Each Patch.td24 1 PATCH TOPICAL DAILY@17 Prednisone (PredniSONE) 20 Mg Tablet 40 MG PO DAILY Prednisone (PredniSONE) 20 Mg Tablet 20 MG PO TID Sulfamethoxazole/Trimeth 800-160 mg (Bactrim DS 800-160 mg) 1 Each Tablet 1 TABLET PO bid x 7 days Tiotropium [place] (Spiriva) 18 Mcg Cap.w.dev 18 MCG IH DAILY Scheduled PRN Albuterol HFA (Proair HFA) 8.5 Gm Hfa.aer.ad 2 PUFFS INHALATION Q4H PRN PRN For Shortness of Breath Hydroxyzine Pamoate (HydrOXYzine Pamoate) 25 Mg Capsule 25 MG PO HS PRN PRN For Insomnia Ipratropium/Albuterol Sulfate (Iprat-Albut 0.5-3(2.5) mg/3 mL Inhalant Soln) 3 Ml Ampul.neb 3 ML NEB Q4H PRN PRN For Shortness of Breath Ipratropium/Albuterol Sulfate (Iprat-Albut 0.5-3(2.5) mg/3 mL Inhalant Soln) 3 Ml Ampul.neb 3 ML IH Q6 PRN PRN For Shortness of Breath General Time Seen by MD: 03:10 Chief Complaint Other (Dyspnea) Hx Obtained From: Patient, EMS Arrived By: Ambulance Sudden in Onset?: No Symptom Duration: Since onset Quality: Painful Severity: Current: Moderate Severity: Maximum: Moderate Recent Healthcare: Recent doctor visit, Recent hospitalization Similar Sx Previous: Yes Past Medical History Past Medical History Notes: Recent visits for COPD exacerbation Last admit was for small bowel obstruction, COPD August 2015 Past Medical History Anxiety History of small bowel obstruction COPD Asthma Reports: Depression Past Surgical History SBO repair Hemicolectomy with anastomosis Smoking History Current Every Day Smoker Social History Alcohol Use: Denies alcohol use Drug Use: THC Other Social History: Ambulatory Status Independent Review of Systems Basic Review of Systems Eyes: Vision NL GI: No abdominal pain Respiratory: Reports: Shortness of breath, Denies: Non-productive cough Musculoskeletal: Denies: Back pain Skin: Denies Rash Complete sys rev & neg: except as marked. Physical Exam Initial Vital Signs Vital Signs (First) Date Time Temp Pulse Resp B/P Pulse Ox O2 Delivery O2 Flow Rate FiO2 11/27/16 03:08 36.7 110 32 127/107 90 Room Air 11/27/16 03:52 3 Initial VS: Reviewed, Vital signs abnormal General/Constitutional: Awake, Alert Neck: Atraumatic, Full range of motion Respiratory / Chest: Atraumatic, Breath sounds = bilat, No respiratory distress End-expiratory wheezing without focal changes Moving air reasonably well Cardiovascular: Heart rate NL, Regular rhythm, Heart sounds NL ENT: Atraumatic, Airway patent, Mucous membranes moist, Pharynx NL Lower Extremity / Pelvis / MS: Neurologic intact, Vascular intact Upper Extremity / MS: Neurologic intact, Vascular intact Interpretation & Diagnostics Lab Results Interpretation Test 11/27/16 03:10 Hold Purple Top Tube Received (Received) Hold Blue Top Tube Received (Received) Hold [place] Top Tube Received (Received) Re-Eval/Medical Decision Med Decision/Clinical Course 41-year-old female who has acute exacerbation of COPD. She continued to smoke but is cutting back. She was restarted on prednisone. Source of Hx: Old records Re-Evaluation/Progress : Time of Eval: 05:12 Patient Status: Condition improved Re-Evaluation/Progress Note: Patient rechecked, who is feeling significantly better. The diagnosis and plan for discharge are discussed. The patient understands and agrees with the evaluation. All questions are addressed at this time. Counseled Regarding: Diagnosis, Lab results, Need for follow-up, When/why to return to ED Discharge & Departure Impression: Primary Impression: COPD exacerbation Disposition: Home Discharge Condition All VS Reviewed: Yes Condition: Stable Patient Instructions: COPD (Chronic Obstructive Pulmonary Disease) (ED) Additional Instructions: Continue your present nebulizer treatments. Prednisone 20 mg by mouth 3 times a day for 5 days, #15. Return as needed if you have worsening breathing again. Stop smoking. Referrals: [facility] Residency [facility] (PCP) Scribe Attestation Portions of this note were transcribed by Anuj Hyde and Faviola Aquino. I, Dr. Hooks personally performed the history, physical exam and medical decision-making; I reviewed and confirmed the accuracy of the information in the transcribed note. Signed by: Anuj Hyde and Faviola Aquino, [place], and [phone]. copies to: [facility] Demetrio Hooks MD November 27, 2016 03:01 Faviola Douglass November 27, 2016 03:31 ANUJ HYDE November 27, 2016 04:22
[~2016-11-27 03:07] MED LIST changes: +AZIT250T4 PO; +IPRA3AMP IH; +PRE20 PO
[2016-11-27 03:08] VITALS: BP 127/107; PULSE 110; RESP 32; O2SAT 90
[2016-11-27] MEDS ORDERED: Albuterol 2.5 mg/3 mL Inhalation Solution NEB ONE (03:40)
[2016-11-27] MEDS ORDERED: predniSONE 20 mg Tablet PO ONE (03:40)
[2016-11-27 03:52] VITALS: PULSE 97; RESP 17; O2SAT 95
[2016-11-27] MEDS ORDERED: PRE20 PO (05:14)
[2016-11-27 05:27] VITALS: BP 134/71; PULSE 102; RESP 18; O2SAT 98
== END 2016-11-27 05:28 | disposition home or self-care (01) ==
LOC: SED 03:07
DX: J44.1 Chronic obstructive pulmonary disease with (acute) exacerbation (principal); J45.909 Unspecified asthma, uncomplicated; F17.200 Nicotine dependence, unspecified, uncomplicated
CPT/HCPCS: 94664; 99283; J7613

== ENCOUNTER 2016-11-30 04:46 | Emergency (ER) | payer OTHER ==
[~2016-11-30] VITALS: Ht 160 cm; Wt 72.0 kg
--- NOTE | 2016-11-30 04:52 | ED.REPORT ---
HPI-Dyspnea / Wheezing Date of Service Nov 30, 2016 ED Provider: Dr. Hooks 41 year old female with a history of anxiety, asthma, and COPD presents to the ED via EMS complaining of dyspnea onset prior to arrival while she was sleeping. The pt used her Nebulizer twice at home before the EMS arrived, with no relief. She last smoked a cigarette two days ago. Nursing Notes Stated Complaint: SOB Nursing Notes Reviewed: Yes Allergies: Coded Allergies: No Known Allergies (Verified Allergy, Unknown, 05/05/16) Scheduled Albuterol HFA (Proair HFA) 8.5 Gm Hfa.aer.ad 2 PUFFS INHALATION Q4H with spacer and teaching for spacer use Azithromycin (Zithromax (Z-Kyle)) 250 Mg Tablet 250 MG PO DIRECTED Take two tablets by mouth on day 1, then take one tablet daily on days 2 through 5. Fluticasone/Salmeterol (Advair 500-50 Diskus) 1 Each Disk.w.dev 1 PUFF IH BID Fluticasone/Salmeterol (Advair 500-50 Diskus) 1 Each Disk.w.dev 1 PUFF IH BID Methylprednisolone (MethylprednisoLONE Dose Kyle) 4 Mg Tab.ds.pk 4 MG PO UD Follow direction on package. Methylprednisolone (MethylprednisoLONE Dose Kyle) 4 Mg Tab.ds.pk 4 MG PO UD Follow direction on package. Nicotine 21 mg/24 hr Patch (Nicotine 21 mg/24 hr Patch) 1 Each Patch.td24 1 PATCH TOPICAL DAILY@17 Prednisone (PredniSONE) 20 Mg Tablet 40 MG PO DAILY Prednisone (PredniSONE) 20 Mg Tablet 20 MG PO TID Sulfamethoxazole/Trimeth 800-160 mg (Bactrim DS 800-160 mg) 1 Each Tablet 1 TABLET PO bid x 7 days Tiotropium [place] (Spiriva) 18 Mcg Cap.w.dev 18 MCG IH DAILY Scheduled PRN Albuterol HFA (Proair HFA) 8.5 Gm Hfa.aer.ad 2 PUFFS INHALATION Q4H PRN PRN For Shortness of Breath Hydroxyzine Pamoate (HydrOXYzine Pamoate) 25 Mg Capsule 25 MG PO HS PRN PRN For Insomnia Ipratropium/Albuterol Sulfate (Iprat-Albut 0.5-3(2.5) mg/3 mL Inhalant Soln) 3 Ml Ampul.neb 3 ML NEB Q4H PRN PRN For Shortness of Breath Ipratropium/Albuterol Sulfate (Iprat-Albut 0.5-3(2.5) mg/3 mL Inhalant Soln) 3 Ml Ampul.neb 3 ML IH Q6 PRN PRN For Shortness of Breath General Time Seen by MD: 04:57 Chief Complaint Shortness of breath Hx Obtained From: Patient Arrived By: Ambulance Sudden in Onset?: Yes Onset Occurred: Just prior to arrival Symptom Duration: Since onset Recent Healthcare: Recent doctor visit Similar Sx Previous: Yes Past Medical History Past Medical History Notes: Recent visits for COPD exacerbation Past Medical History Anxiety History of small bowel obstruction COPD Asthma Reports: Depression Past Surgical History SBO repair Hemicolectomy with anastomosis Smoking History Current Every Day Smoker Social History Alcohol Use: Denies alcohol use Drug Use: THC Other Social History: Ambulatory Status Independent Review of Systems Respiratory: Reports: Shortness of breath Complete sys rev & neg: except as marked. Physical Exam Initial Vital Signs Vital Signs (First) Date Time Temp Pulse Resp B/P Pulse Ox O2 Delivery O2 Flow Rate FiO2 11/30/16 05:04 36.5 137 29 162/87 94 Simple Mask 6 11/30/16 05:28 21 Initial VS: Reviewed, Vital signs abnormal Head / Eyes: Atraumatic, Normocephalic Extremities: Vascular intact, Neuro intact, No swelling, No tenderness Skin: Warm, Dry, No cyanosis Neurologic: Alert, Oriented, Nonfocal General/Constitutional: Awake, Alert Distress / Hydration: Positive: Distress severe Neck: Atraumatic, Full range of motion Respiratory / Chest: Breath sounds = bilat Wheezing in all lung call. Using accessory muscles to breathe. No focal changes. Tripodding. Cardiovascular: Regular rhythm, Heart sounds NL Heart Rate / Rhythm: Positive: Tachycardia Interpretation & Diagnostics Lab Results Interpretation Result Diagram: 11/30/16 0500 11/30/16 0500 Test 11/30/16 05:00 White Blood Count 9.9th/mm3 (3.8-10.1) Red Blood Count 4.43mil/mm3 (3.90-5.20) Hemoglobin 14.9g/dL (12.0-15.6) Hematocrit 44.3% (35.0-46.0) Mean Corpuscular Volume 100.0fL (81-100) Mean Corpuscular Hemoglobin 33.6pg (27.0-35.0) Mean Corpuscular Hemoglobin Concent 33.6% (32.0-37.0) Red Cell Distribution Width 12.7% (12.3-15.4) Platelet Count 342bil/L (150-400) Neutrophils (%) (Auto) 44.5% (40-74) Lymphocytes (%) (Auto) 43.9% (14-46) Monocytes (%) (Auto) 9.1% (4-12) Eosinophils (%) (Auto) 1.9% (0-5) Basophils (%) (Auto) 0.5% (0-3) Sodium Level 140mEq/L (134-144) Potassium Level 4.2mEq/L (3.5-5.2) Chloride Level 102mEq/L (97-108) Carbon Dioxide Level 21mmol/L (18-29) Blood Urea Nitrogen 13mg/dL (6-24) Creatinine 0.84mg/dL (0.57-1.00) Estimat Glomerular Filtration Rate 106mL/min (>59) Glucose Level 95mg/dL (60-99) Calcium Level 9.4mg/dL (8.5-10.1) Magnesium Level 2.2mg/dL (1.6-2.6) Total Bilirubin 0.4mg/dL (0.0-1.2) Aspartate Amino Transf (AST/SGOT) 11U/L (0-50) Alanine Aminotransferase (ALT/SGPT) 8U/L (0-32) Alkaline Phosphatase 40U/L (25-150) Troponin T 0.010ug/L (0.0-0.011) Pro-B-Type Natriuretic Peptide 38.10pg/mL (0-130) Total Protein 7.4g/dL (6.4-8.4) Albumin 4.5g/dL (3.4-5.0) Blood gas report: pH = 7.337 pCO2 = 45 pO2 = 151.0 cHCO3- = 23.7 cBase = -1.8 Lab values outside NL range: no clinical significance. ECG Interpretation ECG Interpretation: Sinus tachycardia. 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 Time: 05:22 Interpreted by: ED physician X-Ray Chest Interpretation Chest Xray Interpretation: Flattened diaphragm. Some blunting at costophrenic angle. Otherwise normal View: Portable, 1 view Interpretation / Wet Read by: Wet read ED physician Re-Eval/Medical Decision Med Decision/Clinical Course 41-year-old female who has a long history of COPD/asthma. She presents with severe exacerbation. She was very tachypneic, tripoding, and using accessory muscles of respirations. She had wheezing in all lung call without focal changes. She was treated in route with DuoNeb and this albuterol by nebulizer. Upon arrival here she was given albuterol 10 mg by nebulizer and Solu-Medrol 125 mg. She was placed on BiPAP with some considerable improvement. Her care is being turned over at change of shift to Dr. Guevara. Source of Hx: Old records Counseled Regarding: Diagnosis, Lab results Discharge & Departure Shift Change Sign-Out Patient Care Transferred: Yes Discussed Complaint(s): Yes Laboratory Evaluation: Ordered, not yet done Imaging Studies: Done, reviewed by me Discharge Condition All VS Reviewed: Yes Referrals: [facility] Residency Clinic (PCP) Care Transferred to: Dr. Shiva Guevara Care Transferred at: 06:00 Scribe Attestation Portions of this note were transcribed by Emmanuel Hernandez. I, , personally performed the history, physical exam and medical decision-making;I reviewed and confirmed the accuracy of the information in the transcribed note. Signed by Carson Barreto. 11/30/16 05:52 copies to: [facility] Demetrio Hooks MD Nov 30, 2016 04:52 Emmanuel Hernandez Nov 30, 2016 04:56
[2016-11-30] MEDS ORDERED: MethylprednisoLONE Sodium Succinate 62.5 mg/mL 2 mL Inj ONE (04:55)
[2016-11-30] MEDS ORDERED: Albuterol 2.5 mg/3 mL Inhalation Solution NEB ONE ×2 (04:58→05:00)
[2016-11-30] MEDS ORDERED: 0.9% Sodium Chloride 1,000 ML IV ONE (04:59)
[2016-11-30] MEDS ORDERED: MethylprednisoLONE Sodium Succinate 62.5 mg/mL 2 mL Inj IVPUSH ONE (05:00)
[2016-11-30 05:04] VITALS: BP 162/87; PULSE 137; RESP 29; O2SAT 94
[2016-11-30 05:07] LABS: BASOPHILS % (AUTO) 0.5 % (0-3); EOSINOPHILS % (AUTO) 1.9 % (0-5); MONOCYTES % (AUTO) 9.1 % (4-12); Mean Corpuscular Hemoglobin 33.6 pg (27.0-35.0); NEUTROPHILS % (AUTO) 44.5 % (40-74); Platelet Count 342 bil/L (150-400)
--- NOTE | 2016-11-30 05:24 | ABG ---
DateTimeAnalyzed 05:19:00 -_ pH ____7.337 - 7.350 7.450 pCO2 ___45.4__ -mmHg 35.0 45.0 pO2 151 -mmHg 69.0 116 HCO3- ___23.7__ -mmol/L 22.0 26.0 ABE ___-1.8__ -mmol/L -2.0 2.0 tHb ___14.3__ -g/dL O2Hb ___96.8__ -% COHb ____1.5__ -% MetHb ____0.9__ -% sO2 ___99.2__ -% FIO2 ___40.0__ -% CPAP ___10.0__ -cmH2O PEEP ____5.0__ -cmH2O Set_RR ___16.0__ -b/min Drawn By MK - Date/Time Notified____ 05:23:00 -_ Oxygen Device 1 ____BIPAP - Notified By MK - Notified Whom De Leibrand - B 758 -mmHg tO2 ___19.6__ -Vol% Dk test _Positive -
[2016-11-30 05:28] VITALS: RESP 17; O2SAT 97
[2016-11-30 05:29] LABS: TROPONIN T 0.01 ug/L (0.0-0.011)
[2016-11-30 05:30] VITALS: PULSE 121; RESP 17; O2SAT 96
[2016-11-30 05:34] VITALS: BP 115/70; PULSE 128; RESP 24; O2SAT 92
[2016-11-30 05:41] LABS: Magnesium 2.2 mg/dL (1.6-2.6)
[2016-11-30 06:30] VITALS: BP 110/64; PULSE 122; RESP 18; O2SAT 89
[2016-11-30] MEDS ORDERED: ZIT250 PO (06:59)
[2016-11-30 07:02] VITALS: BP 121/71; PULSE 115; RESP 20; O2SAT 90
--- NOTE | 2016-11-30 08:53 | DRSVH ---
PROCEDURE: X-RAY CHEST ONE VIEW, PORTABLE ([id number]) INDICATIONS: dyspnea TECHNIQUE: One view of the chest was acquired. COMPARISON: [facility], CR, XR CHEST 2VW, 11/04/2016, 5:16. [facility], CR, XR CHEST 1VW (PORTABLE), 08/05/2016, 4:23. FINDINGS: Surgical changes and devices: None. Lungs and pleura: The lung apices are incompletely included. No pleural effusions or definite pneum othorax. Visualized lungs are clear. There is hyperinflation of the lungs with flattening of the hem idiaphragms compatible with COPD. Mediastinum: Mediastinal contours appear normal. Heart size is normal. Bones and chest wall: No suspicious bony lesions. Overlying soft tissues appear unremarkable. IMPRESSION: 1. Findings compatible with COPD. No definite consolidation, with incomplete inclusion of the lung apices. Dictated by: Alex Telles M.D. on 11/30/2016 at 8:50 Approved by: Alex Telles M.D. on 11/30/2016 at 8:51
== END 2016-11-30 07:26 | disposition home or self-care (01) ==
LOC: EDBD 04:46 → SED 04:46
DX: J96.91 Respiratory failure, unspecified with hypoxia (principal); J44.1 Chronic obstructive pulmonary disease with (acute) exacerbation; R06.82 Tachypnea, not elsewhere classified; J45.909 Unspecified asthma, uncomplicated; F17.200 Nicotine dependence, unspecified, uncomplicated
CPT/HCPCS: 36415; 36620; 71010; 80053; 82375; 82803; 83735; 83880; 84484; 85025; 93005; 94640; 94660; 94799; 96374; 99285; J2930; J7030; J7613